=== PATIENT | male | born 1930 | race Caucasian/White ===

== ENCOUNTER 2017-08-04 03:24 | Inpatient (IN) | payer OTHER ==
[~2017-08-04] VITALS: Ht 177.8 cm; Wt 93.7 kg
[2017-08-04] VITALS (8 sets, daily range): BP systolic 113–150; BP diastolic 52–86
--- NOTE | ~2017-08-04 | PR ---
[place], [place] PROGRESS NOTE NAME: TOBIAS KING [facility] #: [id number] UNIT #: [id number] ROOM: 523 DOCTOR: GLORIA SUAZO MD BIRTHDATE: [birth year] DOS: SUBJECTIVE: The patient states that he is quite tired. He also is slightly more short of breath on exertion. His appetite is poor. He did not participate in physical therapy this morning yet. PHYSICAL EXAMINATION: VITAL SIGNS: Blood pressure is 150/69, pulse of 81, respirations 20, temperature 98.4. LUNGS: Clear. HEART: Regular. ABDOMEN: Obese, soft, nontender. EXTREMITIES: Without any edema. LABORATORY DATA: White cell count is normal at 4.9, hemoglobin 10.3, hematocrit 32.3, platelets 219. BMP: Glucose 100, BUN 23, creatinine 1.54, sodium 135, potassium 4.2, chloride 101, bicarbonate 26. Ultrasound of the carotids was negative. Urinalysis showed 1+ blood, no other abnormality was seen. CT of the head was negative except for small vessel disease. ASSESSMENT AND PLAN: 1. The patient with a fall at home with rhabdomyolysis. The patient is getting IV fluids, repeat myoglobin will be ordered for tomorrow. 2. Acute kidney injury. The patient apparently was taking Bactrim 3 times a day as an outpatient for the last several days as per the family members because of the wound on his left thumb, which may have caused acute kidney injury. The patient is ordered again IV fluids. We will also do a renal ultrasound today to rule out underlying hydronephrosis or obstructive uropathy. 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 A CT of the chest and an echocardiogram have been ordered. 4. Adult failure to thrive. I suggested he go to a rehab, but he has refused. We will see how he does with therapy this morning. GLORIA SUAZO MD CM:PNTRANS 0824 GLORIA SUAZO MD 08/05/17 0859 interface
--- NOTE | ~2017-08-04 | PR ---
[place], [place] PROGRESS NOTE NAME: TOBIAS KING [facility] #: [id number] UNIT #: [id number] ROOM: 523 DOCTOR: GLORIA SUAZO MD BIRTHDATE: [birth year] DOS: 08/06/2017 SUBJECTIVE: The patient is doing fine without any complaints. His appetite is improving. He is eating his breakfast. He did not go out for therapy yesterday because he was too weak. OBJECTIVE: VITAL SIGNS: Graphic trend shows blood pressure of 111/62, pulse of 68, respirations 20, temperature 98.0. LUNGS: Clear. HEART: Regular. ABDOMEN: Obese, soft, nontender. EXTREMITIES: Without any edema. LABORATORY DATA: CT of the chest did not show any acute pathology. Ultrasound of the kidneys showed no hydronephrosis, bladder is not distended, kidneys were within normal limits. WBC count is 4.5, hemoglobin 9.9, hematocrit 30.6. BMP: Glucose 120, BUN 22, creatinine 1.23, sodium 134, potassium 4.1, myoglobin was 442. ASSESSMENT AND PLAN: 1. Acute rhabdomyolysis. The patient is on IV fluids. Myoglobin did go up from when he was admitted. I am hoping it will trend down soon, repeat myoglobin is ordered for tomorrow. 2. Adult failure to thrive with a fall at home. The patient still has not participated in PT yet because he was too tired. He does not want to go to a penitentiary home. He wants to go home because his has early dementia and he does not want to leave her alone at home. 3. Benign hypertension, controlled. 4. Type 2 diabetes mellitus. His last few blood sugars are normal so his metformin has been discontinued. We will consider adding another antidiabetic depending on the sugars before he goes home. GLORIA SUAZO MD CM:PNTRANS 0929 GLORIA SUAZO MD 08/24/17 0934 interface
--- NOTE | ~2017-08-04 | O ---
[place], [place] OPERATIVE NOTE NAME: TOBIAS KING UNIT #: [id number] ROOM: 523 DOCTOR: RAUDEL ESCAMILLA MD BIRTHDATE: [birth year] DOS: 08/07/2017 INDICATIONS: The patient presented with anemia, iron deficiency, undergone investigation. The patient has been on aspirin. PROCEDURE: Today's procedure part of investigation is panendoscopy and colonoscopy. PREMEDICATION: Versed and Diprivan. SCOPE: Olympus folding colonoscope 10L video. REPORT: After putting the patient has lateral position, application of lubricant to the scope, the scope was introduced. Thereafter, under direct visualization, advanced through the length of esophagus without difficulty. Gastric pouch was entered. Presence of degraded blood in droplets in the gastric pouch was noticed photographed. Duodenum was entered. Multiple small duodenal ulcers were identified, photographed. Biopsy from margin of 1 was obtained, the patient was gradually extubated and tolerated the procedure well. IMPRESSION: Duodenal ulcers and gastritis as a cause of guaiac positivity. Please contribution from upper GI tract. We are going to proceed with colonoscopy today. COLONOSCOPY INDICATIONS: The patient presented with chief complaint of GI bleed, anemia, iron deficiency, undergone investigation. PROCEDURE: Today's procedure part of investigation is colonoscopy. PREMEDICATION: Versed and Diprivan. SCOPE: Olympus folding colonoscope 10L video. REPORT: After putting the patient in left lateral position and application of lubricant to the scope, the scope was introduced, under direct visualization, advanced through the length of colon without difficulty. Severe diverticulosis was identified. Retained stool in the right colon noticed. Scope was gradually withdrawn after encountering solid stool in the right colon. Scope was gradually withdrawn. Hemorrhoids externally was noticed, which are agitated. The patient extubated, tolerated procedure well. IMPRESSION: Diverticulosis, retained stool, hemorrhoids, external. PLAN AND DISCUSSION: Withholding the aspirin for a few days, Protonix 40 mg daily and source of the anemia is blood loss, upper GI secondary to aspirin product, and presence of ulcerations in the duodenum. [place], [place] OPERATIVE NOTE NAME: TOBIAS KING UNIT #: [id number] ROOM: 523 DOCTOR: RAUDEL ESCAMILLA MD BIRTHDATE: [birth year] RAUDEL ESCAMILLA MD CM:KENNYORD:OPERATIVE NOTE 15 29 RAUDEL ESCAMILLA MD 08/07/17 1731 interface
--- NOTE | ~2017-08-04 | PR ---
[place], [place] PROGRESS NOTE NAME: TOBIAS KING UNIT #: [id number] ROOM: 523 DOCTOR: GLORIA SUAZO MD BIRTHDATE: [birth year] DOS: SUBJECTIVE: The patient is feeling better and he is anxious to go home. OBJECTIVE: VITAL SIGNS: Graphic trend shows blood pressure of 138/64, pulse of 65, respirations 18, temperature 97.4. LUNGS: Diminished breath sounds, clear. HEART: Regular. ABDOMEN: Soft. EXTREMITIES: Without any edema. LABORATORY DATA: ESR is 53. CRP is 13.70. Iron is 15. B12 is 897. Folic acid 20.84. Echocardiogram showed normal LV function with mild concentric LVH. Urine culture, no bacterial growth. Myoglobin 148. ASSESSMENT AND PLAN: 1. A patient who presents with rhabdomyolysis. Myoglobin after the initial spike has come down. 2. Iron deficiency anemia with elevated ESR and CRP, most likely we will need to do a GI workup to rule out source of blood loss. Iron supplements will be started, one dose of iron IV will be given this morning. 3. Adult failure to thrive, to go home after the colonoscopy with PT, OT. GLORIA SUAZO MD CM:PNTRANS 0942 GLORIA SUAZO MD 08/07/17 1006 interface
--- NOTE | ~2017-08-04 | CON ---
[place], [place] REPORT OF CONSULTATION [id number] UNIT #: [id number] ROOM: 523 DOCTOR: RAUDEL ESCAMILLA MD BIRTHDATE: [birth year] DOS: HISTORY OF PRESENT ILLNESS: An 86-year-old patient who has presented with multiple medical problems, among which has been borderline anemia and Dr. Zuñiga and I have discussed and she would like us to do a colonoscopy and panendoscopy on the patient. BUN and creatinine at the time of admission was 38 and 2.7, and GFR [address] scan of the head has been no acute intracranial finding. His carotid Doppler studies has 50% atherosclerotic plaque. His H and H further dropped to 10 and 32. C-reactive protein is 13 elevated. Iron is 15, so iron-deficient anemia. The patient is on aspirin 81 mg daily. Urine culture has been nonremarkable. Renal ultrasound was done, no hydronephrosis bilaterally. Chest x-ray, CT, no acute process, no effusion was identified. PAST MEDICAL HISTORY: Diabetes, osteoarthritis, COPD, hypertension. SOCIAL HISTORY: Nonsmoker, nonalcohol consumer. Past heavy smoker FAMILY HISTORY: Noncontributory. MEDICATION: List has been reviewed including aspirin. PAST SURGICAL HISTORY: Bilateral knee prosthesis. REVIEW OF SYSTEMS: HEENT: Denies double vision, blurred vision. RESPIRATORY: Admits some shortness of breath. CARDIOVASCULAR: Denies chest pain. DIGESTIVE SYSTEM: No hematemesis, no hematochezia; however anemia, iron deficient. PHYSICAL EXAMINATION: VITAL SIGNS: Stable. HEENT: Head normocephalic, nontraumatic. Eyes: Pupils round, reactive. Sclerae nonicteric. Mouth and buccal mucosa benign. NECK: Supple, no thyromegaly, no cervical lymphadenopathy. CHEST: Symmetric anatomy, decreased air entry, COPD. HEART: Normal sinus rhythm, no gallop, no murmur. ABDOMEN: Soft. No hepato-organomegaly. Bowel sounds present. EXTREMITIES: No cyanosis, no pedal edema. NEUROLOGIC: Alert, oriented to time, place, person. IMPRESSION: Iron deficient anemia. PLAN AND DISCUSSION AND OTHER ADJUNCTIVE DIAGNOSES: Peripheral neuropathy, chronic obstructive pulmonary disease, vascular insufficiency, diabetes, hypertension. PLAN AND DISCUSSION: We are going to perform EGD and colonoscopy if possible for his borderline anemia and iron deficiency. [place], [place] REPORT OF CONSULTATION NAME: TOBIAS KING UNIT #: [id number] ROOM: 523 DOCTOR: FRANCINE BOTELLO,RAUDEL BIRTHDATE: [birth year] RAUDEL ESCAMILLA MD CM:CONSTR:REPORT OF CONSULTATION 1657 08/08/17 1321 interface
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
[~2017-08-04 03:24] MED LIST: AUGMENTIN 875-875 MG PO; Accuneb 0.1.25 MG/3 INH; BAYER ASPIRIN C81 MG PO; GABAPENTIN300 MG PO; LASIX40 MG PO; LOPRESSOR50 M1 PO; MULTI VITAMINS1 TAB PO; Metformin Hydr500 MG PO; SILVADENE,SSD C50 GM PO
[2017-08-04 03:53] LABS: BASO # 0.1 10*3/uL (0.0-0.1); BASO % 0.8 % (0.0-1.0); EOS # 0.1 10*3/uL (0.0-0.4); EOS % 0.7 % (1.0-4.0); HEMATOCRIT 34.5 % (42.0-52.0); HEMOGLOBIN 11.2 g/dl (14.0-18.0); LYMPH # 0.4 10*3/uL (1.3-4.4); LYMPH % 5.7 % (27.0-41.0); MEAN CELL VOLUME 87.8 fl (80.0-94.0); MEAN CORPUSCULAR HGB 28.5 pg (27.0-31.0); MEAN CORPUSCULAR HGB CONC 32.5 g/dl (33.0-37.0); MEAN PLATELET VOLUME 9.1 fl (9.6-12.3); MONO # 0.7 10*3/uL (0.1-1.0); MONO % 9.6 % (3.0-9.0); NEUT # 6.2 10*3/uL (2.3-7.9); NEUT % 82.9 % (47.0-73.0); PLATELET COUNT AUTOMATED 257 10*3/uL (130-400); RED BLOOD COUNT 3.93 10*6/uL (4.50-5.90); RED CELL DISTRI WIDTH 14.4 % (0-14.5); WHITE BLOOD COUNT 7.5 10*3/uL (4.8-10.8)
[2017-08-04 04:09] LABS: ALBUMIN 3.1 gm/dl (3.1-4.5); ALKALINE PHOSPHATASE 91 U/L (45-117); BUN 38 mg/dl (7-24); CHLORIDE 99 mmol/L (98-107); CREATININE 2.27 mg/dL (0.70-1.30); LIPASE 110 U/L (73-393); SGOT/AST 18 IU/L (3-35); SGPT/ALT 18 U/L (12-78); SODIUM 134 mmol/L (136-145); TOTAL PROTEIN 7.3 gm/dL (6.4-8.2)
[2017-08-04 04:11] LABS: TROPONIN I < 0.015 ng/ml (<0.045)
--- NOTE | 2017-08-04 06:15 | NUR ---
A 86YR OLD MALE, admitted to 5E, under the services of GLORIA Rosario MD with a diagnosis of ACUTE RENAL INJURY. Chief complaint is FEELING WEAK. Patient arrived via stretcher from ER. Monitor applied. Initial assessment completed. Vital signs taken and recorded. GLORIA ROSARIO MD notified of admission to the unit. Orders received. See assessment for past medical history, medications and allergies. Patient and/or family oriented to unit 5E. visitation policy reviewed. Clothing/patient valuable form completed. EAN MENEZES
--- NOTE | 2017-08-04 06:20 | NUR ---
Medication reconciliation updated and verified by patient. Patient knew names of medication and dosages.
--- NOTE | 2017-08-04 06:44 | NUR ---
MED REC UP TO DATE PER PATIENT RECALL.
--- NOTE | 2017-08-04 08:00 | NUR ---
Interventional Nurse in to talk to patient. Patient states lives at HOME with HIS . There are 10 steps in the home. Physician: DR SUAZO Pharmacy: [facility] health services: NONE Patient's level of ADLs: MINIMAL ASSIST Patient has working utilities: YES DME: STAIR LEFT Follow-up physician's appointment after d/c: PREFERS TO MAKE HIS OWN APPT Does patient want to access PORTAL?: Discharge plan HOME. [facility] ST[facility] DISCUSSED. REFUSES. WANTS TO GO HOME. DOES NOT WANT [facility].
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
--- NOTE | 2017-08-04 13:14 | NUR ---
PHYSICAL THERAPY Mr Cedillo was seen this PM for his therapy session. Anuj said he was to unsteady this afternoon and would try tomorrow. JUVE WEN MANAGER FLORAL.
--- NOTE | 2017-08-04 20:00 | NUR ---
ASSUMED CARE OF PATIENT. ASSESSMENT COMPLETE. RESTING IN BED. NO VOICED COMPLAINTS. CALL LIGHT IN REACH. WILL CONTINUE TO MONITOR.
--- NOTE | 2017-08-04 23:45 | NUR ---
PT IS SLEEPING COMFORTABLY AFTER RECEIVING AMBIEN PRN.
[2017-08-05] VITALS (7 sets, daily range): BP systolic 118–154; BP diastolic 61–74
[2017-08-05 01:31] LABS: BILIRUBIN NEGATIVE (NEGATIVE); BLOOD 1+ (NEGATIVE); CLARITY CLEAR (CLEAR); COLOR YELLOW (YELLOW); GLUCOSE NEGATIVE (NEGATIVE); KETONE NEGATIVE (NEGATIVE); LEUKO ESTERASE NEGATIVE (NEGATIVE); NITRITE NEGATIVE (NEGATIVE); SPECIFIC GRAVITY 1.015 (1.005-1.030); UROBILINOGEN 0.2 E.U./dl (0.2-1.0)
[2017-08-05 01:41] LABS: EPITHELIAL CELLS 0-5
--- NOTE | 2017-08-05 02:00 | NUR ---
PT CONTINUES TO SLEEP. NO SIGNS OR DISTRESS NOTED. RESP EASY. CALL LIGHT IN REACH. WILL CONTINUE TO MONITOR.
[2017-08-05 06:20] LABS: BASO % 0.8 % (0.0-1.0); EOS % 0.6 % (1.0-4.0); HEMATOCRIT 32.3 % (42.0-52.0); HEMOGLOBIN 10.3 g/dl (14.0-18.0); LYMPH # 0.6 10*3/uL (1.3-4.4); MEAN CELL VOLUME 88.7 fl (80.0-94.0); MEAN CORPUSCULAR HGB 28.3 pg (27.0-31.0); MEAN CORPUSCULAR HGB CONC 31.9 g/dl (33.0-37.0); MEAN PLATELET VOLUME 9.3 fl (9.6-12.3); MONO # 0.5 10*3/uL (0.1-1.0); MONO % 10.3 % (3.0-9.0); NEUT # 3.7 10*3/uL (2.3-7.9); NEUT % 75.5 % (47.0-73.0); PLATELET COUNT AUTOMATED 219 10*3/uL (130-400); RED BLOOD COUNT 3.64 10*6/uL (4.50-5.90); RED CELL DISTRI WIDTH 14.3 % (0-14.5); WHITE BLOOD COUNT 4.9 10*3/uL (4.8-10.8)
[2017-08-05 06:46] LABS: CREATININE 1.54 mg/dL (0.70-1.30); POTASSIUM 4.2 mmol/L (3.5-5.1)
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
--- NOTE | 2017-08-05 09:12 | NUR ---
PATIENT TAKEN OFF THE FLOOR VIA WHEELCHAIR TO RADIOLOGY.
--- NOTE | 2017-08-05 10:42 | NUR ---
PHYSICAL THERAPY Patient was eating breakfast when first approached for am therapy and declined all morning treatment upon 2nd attempt stating he was not feeling well and c/o's cold "shivering". Patient remained in bed covered with several blankets and no services provided this am. Will continue per POC as tolerated. Eliezer Bowen, LIBRARIAN SPECIAL COLLECTIONS
--- NOTE | 2017-08-05 13:37 | NUR ---
SW SPOKE WITH PT AND HE AGREED TO [facility]. PT DOES NOT WANT TO GO TO SNF DUE TO TAKING CARE OF HIS AT HOME.
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
[2017-08-06] VITALS: BP 111/62
--- NOTE | 2017-08-06 01:10 | NUR ---
24 HR chart check completed.
[2017-08-06 07:02] LABS: BASO % 0.7 % (0.0-1.0); EOS # 0.1 10*3/uL (0.0-0.4); EOS % 1.8 % (1.0-4.0); HEMATOCRIT 30.6 % (42.0-52.0); HEMOGLOBIN 9.9 g/dl (14.0-18.0); LYMPH # 0.8 10*3/uL (1.3-4.4); LYMPH % 17.4 % (27.0-41.0); MEAN CELL VOLUME 87.9 fl (80.0-94.0); MEAN CORPUSCULAR HGB 28.4 pg (27.0-31.0); MEAN CORPUSCULAR HGB CONC 32.4 g/dl (33.0-37.0); MEAN PLATELET VOLUME 9.5 fl (9.6-12.3); MONO # 0.5 10*3/uL (0.1-1.0); MONO % 11.9 % (3.0-9.0); NEUT % 67.8 % (47.0-73.0); PLATELET COUNT AUTOMATED 218 10*3/uL (130-400); RED BLOOD COUNT 3.48 10*6/uL (4.50-5.90); RED CELL DISTRI WIDTH 14.5 % (0-14.5); WHITE BLOOD COUNT 4.5 10*3/uL (4.8-10.8)
[2017-08-06 07:33] LABS: BUN 22 mg/dl (7-24); CHLORIDE 101 mmol/L (98-107); CREATININE 1.23 mg/dL (0.70-1.30); POTASSIUM 4.1 mmol/L (3.5-5.1); SODIUM 134 mmol/L (136-145)
[2017-08-06 08:00] VITALS: BP 93/47
[2017-08-06 10:00] VITALS: BP 145/64
--- NOTE | 2017-08-06 11:41 | NUR ---
PHYSICAL THERAPY Patient presented to therapy in supine with report of feeling better than he did yesterday. Patient performed supine to sitting at EOB transfer with SBA. Patient transfered sit to stand with CGA X 1. Patient performed gait CGA X 1 to toilet. Patient transfered to and from toilet with SBA. Patient performed gait around room for 40' x 1 with CGA X 1. Patient performed seated ther ex in bedside chair x 15 reps each in all planes of mvmt. Patient transferred back to bed with CGA X 1. Patient was left in bed supine with bed alarm activated and call light within reach. Patient was 1:1 with this RAILROAD SIGNAL AND SWITCH OPERATOR for 25 minutes total. Cheikh Krishna RAILROAD SIGNAL AND SWITCH OPERATOR
[2017-08-06 12:00] VITALS: BP 108/55
--- NOTE | 2017-08-06 15:15 | NUR ---
PT IN BED, LAYING DOWN. NO COMPLAINTS AT THIS TIME. NO DISTRESS NOTED.
[2017-08-06 16:00] VITALS: BP 118/58
--- NOTE | 2017-08-06 16:08 | NUR ---
WOUND DRESSING ON PTS LEFT THUMB CHANGED. SKIN IS PEELING OFF AROUND THE WOUND. HALF OF FINGERNAIL IS MISSING. SMALL AMOUNT OF YELLOW EXUDATE PRESENT. WOUND IS RED/PINK IN COLOR. PT TOLERATED DRESSING CHANGE WELL. DENIES ANY PAIN DURING CHANGE.
[2017-08-06 20:00] VITALS: BP 128/60
--- NOTE | 2017-08-06 21:05 | NUR ---
PATIENT RESTING QUIETLY IN BED. HE HAS NO VOICED COMPLAINTS AT THIS TIME. RESPIRATIONS EASY/REG. NO SXS OF DISTRESS. FLUIDS MAINTAINED PER ORDER. CALL LIGHT IN REACH.
--- NOTE | 2017-08-06 21:10 | NUR ---
MEDICATED WITH PRN AMBIEN ORDERED FOR C/O INSOMNIA
--- NOTE | 2017-08-06 22:15 | NUR ---
EARLIER AMBIEN APPEARS EFFECTIVE. PATIENT SLEEPING, NO SXS OF DISTRESS. CALL LIGHT IN REACH.
[2017-08-07] VITALS (8 sets, daily range): BP systolic 114–154; BP diastolic 63–98
--- NOTE | 2017-08-07 01:19 | NUR ---
24 HR chart check completed.
--- NOTE | 2017-08-07 09:41 | NUR ---
DR SUAZO SEES PT. SPOKE WITH HIM RE: EGD/COLO PT AGREEABLE. DR SUAZO CALLED DR ESCAMILLA RE: EGD/COLO. THIS NURSE RECIEVED PHONE ORDERS FOR EGD/COLO PREP. DR SUAZO SPOKE WITH DAUGHTER AND INFORMED OF EGD/COLO TODAY.
[2017-08-07] MEDS ORDERED: GLIPIZIDE5 MG PO (09:45)
[2017-08-07] MEDS ORDERED: FE C TABLET1 EACH PO (09:46)
--- NOTE | 2017-08-07 11:10 | NUR ---
PHYSICAL THERAPY Patient was sleeping soundly when first approached this am for therapy visit and requested pm treatment during second attempt later this morning, stating he wanted to rest till lunch. Will continue per POC as tolerated. Eliezer Bowen, TRANSMISSION SPECIALIST
--- NOTE | 2017-08-07 14:55 | NUR ---
TAP WATER ENEMA GIVEN WITH SMALL RESULTS. SURGERY AWARE.
--- NOTE | 2017-08-07 15:17 | NUR ---
PT OFF FLOOR FOR EGD/COLO.
--- NOTE | 2017-08-07 18:10 | NUR ---
pt back from surgery. dr perez called per pt request to go home. orders received to discharge tonsami. HENRY ASA and protonix will be called into [facility].
--- NOTE | 2017-08-07 18:11 | NUR ---
Discharge instructions reviewed with patient/family. Patient receptive and verbalizes understanding. Follow-up care arranged. Written instructions given to patient/family. NEELAM LUJAN
--- NOTE | 2017-08-10 07:51 | NUR ---
PHYSICAL THERAPY CO-SIGN I approve of the Phyical Therapy notes written above. CHERYL GERMAN PT
== END 2017-08-07 19:26 | disposition home or self-care (01) | DRG 557 ==
LOC: ED 03:24 → 5E 05:23 → EDHOLD 05:23 → 5E 05:25
PROVIDERS: Emergency Medicine Emergency Medical Services; ADMIT Internal Medicine
PROC: 3E0234Z Introduction of Serum, Toxoid and Vaccine into Muscle, Percutaneous Approach (ICD-10-PCS; 2017-08-04)
PROC: 0DJD8ZZ Inspection of Lower Intestinal Tract, Via Natural or Artificial Opening Endoscopic (ICD-10-PCS; principal; 2017-08-07)
PROC: 0DB68ZX Excision of Stomach, Via Natural or Artificial Opening Endoscopic, Diagnostic (ICD-10-PCS; principal; 2017-08-07)
DX: M62.82 Rhabdomyolysis (principal); N17.0 Acute kidney failure with tubular necrosis; E11.42 Type 2 diabetes mellitus with diabetic polyneuropathy; K26.9 Duodenal ulcer, unspecified as acute or chronic, without hemorrhage or perforation; J43.1 Panlobular emphysema; K29.70 Gastritis, unspecified, without bleeding; R62.7 Adult failure to thrive; D50.9 Iron deficiency anemia, unspecified; K64.4 Residual hemorrhoidal skin tags; I10 Essential (primary) hypertension; M17.0 Bilateral primary osteoarthritis of knee; K57.30 Diverticulosis of large intestine without perforation or abscess without bleeding; W18.39XA Other fall on same level, initial encounter; I87.2 Venous insufficiency (chronic) (peripheral); Z53.29 Procedure and treatment not carried out because of patient's decision for other reasons; Z87.891 Personal history of nicotine dependence; Z79.84 Long term (current) use of oral hypoglycemic drugs; Z81.8 Family history of other mental and behavioral disorders; Z79.82 Long term (current) use of aspirin; Z23 Encounter for immunization; Y93.89 Activity, other specified; Y92.098 Other place in other non-institutional residence as the place of occurrence of the external cause; Y99.8 Other external cause status

== ENCOUNTER 2017-10-04 16:12 | Inpatient (IN) | payer OTHER ==
[~2017-10-04] VITALS: Ht 177.8 cm; Wt 84.4 kg
--- NOTE | ~2017-10-04 | WRIGHTHP ---
[place], [place] PATIENT HISTORY AND PHYSICAL EXAM [id number] #: [id number] ROOM: 524 DOCTOR: GLORIA SUAZO MD BIRTHDATE: [birth year] DOS: 10/04/2017 HISTORY OF PRESENT ILLNESS: This patient is 87 years old. The patient is very well known to us. The patient comes in with complaint of swelling of the right side of the face, mouth and some swelling of the lip, but no swelling of the tongue. He did not have any trouble breathing. He denies having any chest pains or palpitation. Came into the Emergency Room, and was evaluated, was thought to have angioedema from LISINOPRIL and was admitted. This morning, his swelling is much improved. He does not have any complaints. He feels good. PAST MEDICAL HISTORY: Significant for: 1. Recent hospitalization with rhabdomyolysis. 2. Adult failure to thrive. 3. Type 2 diabetes mellitus, non-insulin dependent. 4. Iron deficiency anemia. 5. Benign hypertension. 6. Peripheral neuropathy. MEDICATIONS: Protonix 40, Lasix 40, gabapentin 300 b.i.d., lisinopril, glipizide 5 daily, metoprolol 50 daily, albuterol inhaler, aspirin 81 daily. SOCIAL HISTORY: Nonsmoker, does not use any alcohol. PHYSICAL EXAMINATION: VITAL SIGNS: Graph trend shows a pressure of 132/67, pulse of 80, respirations 20, temperature 97.5. LUNGS: Clear. HEART: Regular. ABDOMEN: Obese, soft, nontender. EXTREMITIES: Without any edema. Right side of the face looks minimal swelling, but much improved when compared to yesterday. ASSESSMENT AND PLAN: 1. Angioedema from LISINOPRIL, which has been discontinued. IV steroids were given and the swelling has subsided. The patient is stable and can be discharged to home. 2. Benign hypertension, already on metoprolol, which will be continued. 3. Type 2 diabetes mellitus, on glipizide which will be continued as an outpatient. [place], [place] PATIENT HISTORY AND PHYSICAL EXAM [facility]: [id number] #: [id number] ROOM: 524 DOCTOR: GLORIA SUAZO MD BIRTHDATE: [birth year] GLORIA SUAZO MD CM:DENICES:PATIENT HISTORY AND PHYSICAL EXAMINATION 1 1010 GLORIA SUAZO MD 10/05/17 1009 interface
[~2017-10-04 16:12] MED LIST changes: +FE C TABLET1 EACH PO; +GLIPIZIDE5 MG PO
[2017-10-04 16:13] VITALS: BP 165/77
[2017-10-04 16:43] LABS: BASO % 0.5 % (0.0-1.0); EOS # 0.1 10*3/uL (0.0-0.4); EOS % 1.3 % (1.0-4.0); HEMATOCRIT 32.2 % (42.0-52.0); HEMOGLOBIN 10.2 g/dl (14.0-18.0); LYMPH # 2.1 10*3/uL (1.3-4.4); LYMPH % 26.7 % (27.0-41.0); MEAN CELL VOLUME 88.7 fl (80.0-94.0); MEAN CORPUSCULAR HGB 28.1 pg (27.0-31.0); MEAN CORPUSCULAR HGB CONC 31.7 g/dl (33.0-37.0); MEAN PLATELET VOLUME 9.6 fl (9.6-12.3); MONO % 12.6 % (3.0-9.0); NEUT # 4.6 10*3/uL (2.3-7.9); NEUT % 58.5 % (47.0-73.0); PLATELET COUNT AUTOMATED 390 10*3/uL (130-400); RED BLOOD COUNT 3.63 10*6/uL (4.50-5.90); RED CELL DISTRI WIDTH 14.5 % (0-14.5); WHITE BLOOD COUNT 7.8 10*3/uL (4.8-10.8)
[2017-10-04 16:58] LABS: ALBUMIN 2.9 gm/dl (3.1-4.5); ALKALINE PHOSPHATASE 88 U/L (45-117); BUN 25 mg/dl (7-24); CHLORIDE 101 mmol/L (98-107); CREATININE 1.43 mg/dL (0.70-1.30); POTASSIUM 4.4 mmol/L (3.5-5.1); SGOT/AST 16 IU/L (3-35); SGPT/ALT 12 U/L (12-78); SODIUM 139 mmol/L (136-145); TOTAL PROTEIN 7.5 gm/dL (6.4-8.2)
[2017-10-04 16:59] LABS: TROPONIN I < 0.015 ng/ml (<0.045)
[2017-10-04 17:40] VITALS: BP 156/73
[2017-10-04] MEDS ORDERED: MILLIPRED5 MG PO (18:00)
[2017-10-04] MEDS ORDERED: LISINOPRIL5 MG PO (18:01)
[2017-10-04 20:00] VITALS: BP 141/62
[2017-10-05] VITALS: BP 132/67
[2017-10-05 08:00] VITALS: BP 154/74
== END 2017-10-05 10:08 | disposition home or self-care (01) | DRG 916 ==
LOC: ED 16:12 → EDHOLD 16:45 → 5E 16:45
PROVIDERS: Student in an Organized Health Care Education/Training Program
DX: T78.3XXA Angioneurotic edema, initial encounter (principal); E11.42 Type 2 diabetes mellitus with diabetic polyneuropathy; D50.9 Iron deficiency anemia, unspecified; T46.4X5A Adverse effect of angiotensin-converting-enzyme inhibitors, initial encounter; R62.7 Adult failure to thrive; I10 Essential (primary) hypertension; Z79.84 Long term (current) use of oral hypoglycemic drugs; Z79.899 Other long term (current) drug therapy; Y92.89 Other specified places as the place of occurrence of the external cause

== ENCOUNTER 2017-10-12 10:48 | Emergency (ER) | payer OTHER ==
[~2017-10-12] VITALS: Ht 180.3 cm; Wt 88.5 kg
[~2017-10-12 10:48] MED LIST changes: +LISINOPRIL5 MG PO; +MILLIPRED5 MG PO
[2017-10-12 11:06] VITALS: BP 98/65
[2017-10-12 12:22] LABS: BASO % 0.4 % (0.0-1.0); EOS # 0.1 10*3/uL (0.0-0.4); HEMATOCRIT 33.9 % (42.0-52.0); HEMOGLOBIN 10.6 g/dl (14.0-18.0); LYMPH # 1.2 10*3/uL (1.3-4.4); LYMPH % 13.7 % (27.0-41.0); MEAN CELL VOLUME 89.2 fl (80.0-94.0); MEAN CORPUSCULAR HGB 27.9 pg (27.0-31.0); MEAN CORPUSCULAR HGB CONC 31.3 g/dl (33.0-37.0); MEAN PLATELET VOLUME 9.3 fl (9.6-12.3); MONO # 0.8 10*3/uL (0.1-1.0); MONO % 8.8 % (3.0-9.0); NEUT # 6.8 10*3/uL (2.3-7.9); NEUT % 75.5 % (47.0-73.0); PLATELET COUNT AUTOMATED 357 10*3/uL (130-400); RED CELL DISTRI WIDTH 14.7 % (0-14.5); WHITE BLOOD COUNT 9.1 10*3/uL (4.8-10.8)
[2017-10-12 12:31] LABS: ACT PARTIAL THROMBO TIME 23.2 SECONDS (20.8-31.5)
[2017-10-12 12:40] LABS: ALBUMIN 3.1 gm/dl (3.1-4.5); ALKALINE PHOSPHATASE 91 U/L (45-117); BUN 18 mg/dl (7-24); CHLORIDE 99 mmol/L (98-107); CREATININE 1.13 mg/dL (0.70-1.30); POTASSIUM 4.9 mmol/L (3.5-5.1); SGOT/AST 13 IU/L (3-35); SGPT/ALT 15 U/L (12-78); SODIUM 138 mmol/L (136-145); TOTAL PROTEIN 7.3 gm/dL (6.4-8.2)
[2017-10-12 12:41] LABS: TROPONIN I < 0.015 ng/ml (<0.045)
[2017-10-12] MEDS ORDERED: ZOFRAN ODT4 MG SL (13:51)
== END 2017-10-12 13:16 | disposition home or self-care (01) ==
LOC: ED 10:48
PROVIDERS: Emergency Medicine
DX: M47.816 Spondylosis without myelopathy or radiculopathy, lumbar region (principal); M25.551 Pain in right hip; R11.0 Nausea; I10 Essential (primary) hypertension; Z79.899 Other long term (current) drug therapy

== ENCOUNTER → 2018-03-11 | Outpatient (CLI) | payer OTHER ==
[~2018-03-11] MED LIST changes: +AMLODIPINE BESYL5 MG PO; +ZOFRAN ODT4 MG SL
== END | disposition home or self-care (01) ==
LOC: RAD 10:15
DX: M51.36 Other intervertebral disc degeneration, lumbar region (principal); M51.37 Other intervertebral disc degeneration, lumbosacral region; M47.896 Other spondylosis, lumbar region; M47.897 Other spondylosis, lumbosacral region

== ENCOUNTER 2018-03-16 08:35 | Emergency (ER) | payer OTHER ==
[~2018-03-16] VITALS: Ht 177.8 cm; Wt 88.9 kg
[~2018-03-16 08:35] MED LIST changes: -AMLODIPINE BESYL5 MG PO
[2018-03-16 09:30] LABS: BASO % 0.4 % (0.0-1.0); EOS # 0.2 10*3/uL (0.0-0.4); EOS % 1.8 % (1.0-4.0); HEMATOCRIT 35.5 % (42.0-52.0); HEMOGLOBIN 11.8 g/dl (14.0-18.0); LYMPH # 1.1 10*3/uL (1.3-4.4); LYMPH % 11.9 % (27.0-41.0); MEAN CELL VOLUME 88.1 fl (80.0-94.0); MEAN CORPUSCULAR HGB 29.3 pg (27.0-31.0); MEAN CORPUSCULAR HGB CONC 33.2 g/dl (33.0-37.0); MEAN PLATELET VOLUME 10.7 fl (9.6-12.3); MONO # 1.2 10*3/uL (0.1-1.0); MONO % 12.1 % (3.0-9.0); NEUT % 73.3 % (47.0-73.0); PLATELET COUNT AUTOMATED 377 10*3/uL (130-400); RED BLOOD COUNT 4.03 10*6/uL (4.50-5.90); RED CELL DISTRI WIDTH 15.1 % (0-14.5); WHITE BLOOD COUNT 9.6 10*3/uL (4.8-10.8)
[2018-03-16 09:52] LABS: BILIRUBIN NEGATIVE (NEGATIVE); BLOOD NEGATIVE (NEGATIVE); CLARITY CLEAR (CLEAR); COLOR YELLOW (YELLOW); GLUCOSE NEGATIVE (NEGATIVE); KETONE NEGATIVE (NEGATIVE); LEUKO ESTERASE NEGATIVE (NEGATIVE); NITRITE NEGATIVE (NEGATIVE); PH 5.5 (5.0-9.0); SPECIFIC GRAVITY 1.015 (1.005-1.030); UROBILINOGEN 0.2 E.U./dl (0.2-1.0)
[2018-03-16 10:02] LABS: EPITHELIAL CELLS 0-2; RBC 0-2 rbc/hpf (0-2); WBC 0-2 wbc/hpf (0-5)
[2018-03-16 10:07] VITALS: BP 120/69
[2018-03-16 10:14] LABS: ALBUMIN 3.6 gm/dl (3.1-4.5); ALKALINE PHOSPHATASE 83 U/L (45-117); BUN 28 mg/dl (7-24); CHLORIDE 100 mmol/L (98-107); CREATININE 1.42 mg/dL (0.70-1.30); POTASSIUM 4.5 mmol/L (3.5-5.1); SGOT/AST 17 IU/L (3-35); SGPT/ALT 26 U/L (12-78); SODIUM 135 mmol/L (136-145); TOTAL PROTEIN 7.3 gm/dL (6.4-8.2)
[2018-03-16 10:20] LABS: TROPONIN I < 0.015 ng/ml (<0.045)
== END 2018-03-16 11:18 | disposition home or self-care (01) ==
LOC: ED 08:35
PROVIDERS: Emergency Medicine
DX: R42 Dizziness and giddiness (principal); I10 Essential (primary) hypertension; Z98.890 Other specified postprocedural states; Z79.899 Other long term (current) drug therapy

== ENCOUNTER 2018-03-20 19:28 | Inpatient (IN) | payer OTHER ==
[~2018-03-20] VITALS: Ht 177.8 cm; Wt 92.5 kg
--- NOTE | ~2018-03-20 | WRIGHTHP ---
[place], [place] PATIENT HISTORY AND PHYSICAL EXAM NAME: TOBIAS KING [facility] #: [id number] UNIT #: [id number] ROOM: 410 DOCTOR: GREGG DEAN MD BIRTHDATE: [birth year] DOS: 03/20/2018 HISTORY OF PRESENT ILLNESS: The patient is an 87-year-old gentleman with a past medical history of: 1. Degenerative joint disease of the lumbar spine. 2. History of benign essential hypertension. 3. Adult failure to thrive. 4. Type 2 diabetes mellitus. 5. Iron deficiency anemia. 6. Peripheral diabetic polyneuropathy. The patient presented to the Emergency Department with generalized weakness, dizziness and inability to ambulate. The patient lives with his who also is not in good health. He had some complaints of nausea and not being able to eat and sleeping more than usual. The patient was seen in the Emergency Department a few days earlier for these same symptoms and sent home, but he has been getting worse for about 2 weeks. The patient was having difficulty even getting to the bathroom while he was using a walker at home. The patient was evaluated in the Emergency Department and recommended for admission for orthostatic hypotension, ambulatory dysfunction, dehydration and dizziness. After admission, the patient is still complaining of having difficulty with walking. REVIEW OF SYSTEMS: LUNGS: No increasing shortness of breath. GASTROINTESTINAL: The patient has some nausea. CARDIOVASCULAR: No chest pains or palpitations. FAMILY HISTORY: Noncontributory. SOCIAL HISTORY: Denies smoking cigarettes, alcohol and drug abuse. HOME MEDICATIONS: Meclizine, metoprolol, prednisone. ALLERGIES: No known drug allergies. PHYSICAL EXAMINATION: GENERAL: Alert, oriented x 3 with generalized weakness and obesity. VITAL SIGNS: Blood pressure was 102/62, heart rate of 61 beats per minute, breathing 18 times per minute, temperature 98 degrees Fahrenheit. HEENT AND NECK: Extraocular movements are intact. Sclerae are anicteric. Oral mucosa is moist and clean. No obvious facial weakness. Neck is supple without any lymphadenopathy. No thyromegaly. No JVD. No carotid arterial bruits. LUNGS: Clear to auscultation. No wheezing. No rhonchi. CARDIOVASCULAR SYSTEM: Heart rate is regular in rate and rhythm. S1 and S2 normally audible. No significant murmur or any other abnormal cardiac sounds. ABDOMEN: Soft, nontender. No obvious organomegaly. Bowel sounds are present. No obvious herniation. EXTREMITIES: Without significant cyanosis or edema. Warm to touch. CENTRAL NERVOUS SYSTEM: Alert and oriented x 3. Cranial nerves II-XII are [place], [place] PATIENT HISTORY AND PHYSICAL EXAM NAME: TOBIAS KING UNIT #: [id number] ROOM: 410 DOCTOR: GREGG DEAN MD BIRTHDATE: [birth year] intact. Speech is normal. The patient is able to move all extremities. Normal muscle strength. Deep tendon reflexes are equal on both sides. Plantars were downgoing. LABORATORY DATA: BUN and creatinine elevated to 33 and 2.13. PT, PTT were baseline. Hemoglobin 11.8. Urine shows signs of infection. IMPRESSION AND PLAN: 1. The patient with acute kidney disease from dehydration and hypovolemia with elevation of BUN and creatinine, to be treated with hydration with normal saline. 2. Orthostatic hypotension, partly from dehydration and hypovolemia, being treated with hydration with IV fluids. 3. Significant vertigo, imbalance and the patient unable to ambulate, being started on physical therapy and Antivert. CT of his head showed no acute abnormality, but it did show diffuse cerebral atrophy. 4. Benign essential hypertension. Blood pressure is to be monitored and treated as necessary. 5. Type 2 diabetes mellitus. Blood sugar is to be monitored and treated. 6. Centrilobular emphysema, to be treated with bronchodilators as needed. GREGG DEAN MD CM:HISPHYS:PATIENT HISTORY AND PHYSICAL EXAMINATION 06 12 GREGG DEAN MD 03/21/181911 interface
--- NOTE | ~2018-03-20 | PR ---
[place], [place] PROGRESS NOTE [id number] UNIT #: [id number] ROOM: 410 DOCTOR: GREGG DEAN MD BIRTHDATE: [birth year] DOS: 03/23/2018 SUBJECTIVE: The patient is feeling much better. His dizziness has significantly improved. OBJECTIVE: VITAL SIGNS: Blood pressure 140/58, heart rate 80 beats per minute, breathing 18 times per minute, afebrile. GENERAL APPEARANCE: The patient is alert and oriented x 3, in no visible distress. Generalized weakness. HEENT AND NECK: Exam within normal limits. CARDIOVASCULAR SYSTEM: Heart rate is regular in rate and rhythm. S1 and S2 normally audible. LUNGS: Clear to auscultation. ABDOMEN: Soft, nontender. No obvious organomegaly. Bowel sounds are present. EXTREMITIES: Without significant cyanosis or edema. IMPRESSION: 1. The patient's generalized weakness, vertigo, ataxia and ambulatory dysfunction is all improving. The patient is working with physical therapy and waiting for transfer to shelter for rehab. 2. Carotid arterial Dopplers are pending for tomorrow. 3. Orthostatic hypotension, treated with hydration. Now, the patient is with IV hydration. Now, the patient is eating well, so IV fluids are being discontinued. 4. Benign essential hypertension with controlled blood pressures. Because of his dizziness and postural hypotension, I will avoid lowering his blood pressures further and I will leave them at high normal level or slightly higher than normal level. 5. Type 2 diabetes mellitus. Blood sugars are well controlled. 6. Centrilobular emphysema, treated with bronchodilators. He is asymptomatic. 7. Acute kidney failure, resolved with hydration with normal saline. GREGG DEAN MD CM:PNTRANS [id number] GREGG DEAN MD 03/25/18 0247 interface
--- NOTE | ~2018-03-20 | PR ---
[place], [place] PROGRESS NOTE [id number] UNIT #: [id number] ROOM: 410 DOCTOR: GREGG DEAN MD BIRTHDATE: [birth year] DOS: 03/23/2018 SUBJECTIVE: The patient says his dizziness and vertigo are improving and he is starting to walk a little better. OBJECTIVE: GENERAL APPEARANCE: The patient is alert and oriented x 3, in no visible distress. VITAL SIGNS: Blood pressure 136/63, heart rate of 58 beats per minute, breathing 20 times per minute, temperature 98 degrees Fahrenheit. HEENT AND NECK: Exam within normal limits. CARDIOVASCULAR SYSTEM: Heart rate is regular in rate and rhythm. S1 and S2 normally audible. LUNGS: Clear to auscultation. ABDOMEN: Soft, nontender. No obvious organomegaly. Bowel sounds are present. EXTREMITIES: Generalized weakness and gait disturbance. IMPRESSION: 1. The patient with vertigo, ataxia, and ambulatory dysfunction is improving with treatment with Antivert and physical therapy. The patient waiting to be transferred to long term facility for further care. MRI of the brain did not show any acute abnormality. I will check his carotid arterial Dopplers. 2. Orthostatic hypotension, treated with hydration with normal saline. 3. Acute over chronic kidney disease with kidney function has returned to baseline and normal after hydration with normal saline. 4. Benign essential hypertension, treated and controlled. 5. Type 2 diabetes mellitus. Blood sugars are being monitored and treated. 6. Centrilobular emphysema, treated with bronchodilators, asymptomatic. GREGG DEAN MD CM:PNTRANS [phone] GREGG DEAN MD 03/24/18 0504 interface
--- NOTE | ~2018-03-20 | PR ---
[place], [place] PROGRESS NOTE NAME: TOBIAS KING UNIT #: [id number] ROOM: 410 DOCTOR: GREGG DEAN MD BIRTHDATE: [birth year] DOS: 03/22/2018 SUBJECTIVE: The patient says he is sleepier with Antivert, but he is still having difficulty with walking and he is working with physical therapy. OBJECTIVE: VITAL SIGNS: Blood pressure 122/55, heart rate 60 beats per minute, breathing 18 times per minute, temperature 97.5 degrees Fahrenheit. GENERAL APPEARANCE: The patient is alert and oriented x 3, in no visible distress. Difficulty with gait and generalized weakness. HEENT AND NECK: Exam within normal limits. CARDIOVASCULAR SYSTEM: Heart rate is regular in rate and rhythm. S1 and S2 normally audible. LUNGS: Clear to auscultation. ABDOMEN: Soft, nontender. No obvious organomegaly. Bowel sounds are present. EXTREMITIES: Without significant cyanosis or edema. IMPRESSION: 1. The patient with significant vertigo and difficulty with balancing and gait issues. The patient's MRI of the brain shows significant abnormality, but no acute issues except for the patient showing small vessel disease and loss of guaman matter. All other changes are same as before. Plan is to continue physical therapy and Antivert and also [facility] and from [facility] there, he will be sent over for ENT consult, which is not available at our hospital at this time. 2. Orthostatic hypotension, treated with hydration with normal saline intravenously. 3. Acute over chronic kidney disease. BUN and creatinine improved with hydration with IV fluids. I will repeat serum electrolytes, BUN and creatinine tomorrow. 4. Benign essential hypertension, treated and controlled. 5. Type 2 diabetes mellitus. Blood sugars being monitored and treated. 6. Centrilobular emphysema, treated with bronchodilators. [place], [place] PROGRESS NOTE NAME: TOBIAS KING UNIT #: [id number] ROOM: 410 DOCTOR: GREGG DEAN MD BIRTHDATE: [birth year] GREGG DEAN MD CM:PNTRANS [id number] GREGG DEAN MD 03/23/18 0111 interface
--- NOTE | ~2018-03-20 | DS ---
[place], [place] DISCHARGE SUMMARY NAME: TOBIAS KING UNIT #: [id number] ROOM: 410 DOCTOR: GREGG DEAN MD BIRTHDATE: [birth year] DOS: 03/25/2018 DISCHARGE DIAGNOSES: The patient with severe vertigo and gait disturbance, unable to walk by himself. HOSPITAL COURSE: The patient was admitted and started on physical therapy as well as Antivert. Carotid arterial Dopplers and CAT scan and later on MRI of the head did not show any acute abnormality. The patient's balance has continued to improve and he is now going to [facility] for continued rehabilitation and expects to be discharged home from the detention after completing his physical therapy. 1. Orthostatic hypotension and hypovolemia. The patient is already on antihypertensives. He was treated with hydration with normal saline and now he is eating well. I am allowing his blood pressures to sit a little on the lower side to avoid worsening of the orthostatic hypotension. 2. Benign essential hypertension, treated and controlled. 3. Type 2 diabetes mellitus. Blood sugars were monitored and treated and are reasonably controlled. 4. Centrilobular emphysema. The patient treated with bronchodilators, asymptomatic. 5. Acute kidney failure, resolved with hydration with normal saline. BUN and creatinine are at baseline now. It was apparently related to poor appetite and patient not eating well at home and being sick. LABORATORY DATA: Urine cultures were negative. MRI and CT scan results as mentioned above. BUN and creatinine were elevated to 33 and 2.1 at admission and they are normal now. DISCHARGE MANAGEMENT: The patient to take amlodipine 5 mg a day, prednisone 5 mg a day, Meclizine 50 mg 3 times a day for a week and then to be stopped, metoprolol 50 mg daily. Consult physical therapy and occupational therapy. [place], [place] DISCHARGE SUMMARY NAME: TOBIAS KING UNIT #: [id number] ROOM: 410 DOCTOR: GREGG DEAN MD BIRTHDATE: [birth year] GREGG DEAN MD CM:DISCHARG [id number] GREGG DEAN MD 03/25/18 1729 interface
[2018-03-20 19:32] VITALS: BP 110/74
[2018-03-20 20:07] VITALS: BP 108/56; BP 143/86
[2018-03-20 20:09] LABS: BASO # 0.1 10*3/uL (0.0-0.1); BASO % 0.5 % (0.0-1.0); EOS # 0.1 10*3/uL (0.0-0.4); EOS % 0.8 % (1.0-4.0); HEMOGLOBIN 11.8 g/dl (14.0-18.0); LYMPH # 1.3 10*3/uL (1.3-4.4); LYMPH % 12.4 % (27.0-41.0); MEAN CELL VOLUME 87.2 fl (80.0-94.0); MEAN CORPUSCULAR HGB 28.6 pg (27.0-31.0); MEAN CORPUSCULAR HGB CONC 32.8 g/dl (33.0-37.0); MEAN PLATELET VOLUME 9.2 fl (9.6-12.3); MONO # 1.3 10*3/uL (0.1-1.0); MONO % 12.6 % (3.0-9.0); NEUT # 7.7 10*3/uL (2.3-7.9); NEUT % 72.9 % (47.0-73.0); PLATELET COUNT AUTOMATED 399 10*3/uL (130-400); RED BLOOD COUNT 4.13 10*6/uL (4.50-5.90); RED CELL DISTRI WIDTH 14.6 % (0-14.5); WHITE BLOOD COUNT 10.6 10*3/uL (4.8-10.8)
[2018-03-20 20:19] LABS: ACT PARTIAL THROMBO TIME 21.3 SECONDS (20.8-31.5)
[2018-03-20 20:26] LABS: ALBUMIN 3.5 gm/dl (3.1-4.5); ALKALINE PHOSPHATASE 105 U/L (45-117); BUN 33 mg/dl (7-24); CHLORIDE 96 mmol/L (98-107); CREATININE 2.13 mg/dL (0.70-1.30); POTASSIUM 4.3 mmol/L (3.5-5.1); SGOT/AST 24 IU/L (3-35); SGPT/ALT 35 U/L (12-78); SODIUM 132 mmol/L (136-145); TOTAL PROTEIN 7.4 gm/dL (6.4-8.2)
[2018-03-20 20:32] LABS: TROPONIN I < 0.015 ng/ml (<0.045)
[2018-03-20 20:39] VITALS: BP 118/58
[2018-03-20 21:05] LABS: BILIRUBIN NEGATIVE (NEGATIVE); BLOOD NEGATIVE (NEGATIVE); CLARITY SL CLOUDY (CLEAR); COLOR YELLOW (YELLOW); GLUCOSE NEGATIVE (NEGATIVE); KETONE NEGATIVE (NEGATIVE); LEUKO ESTERASE 1+ (NEGATIVE); NITRITE NEGATIVE (NEGATIVE); PH 5.5 (5.0-9.0); SPECIFIC GRAVITY 1.015 (1.005-1.030); UROBILINOGEN 0.2 E.U./dl (0.2-1.0)
[2018-03-20 21:15] LABS: BACTERIA 1+; EPITHELIAL CELLS 0-2
[2018-03-20 21:16] LABS: HYALINE CAST 0-2
[2018-03-20 21:40] VITALS: BP 143/78
[2018-03-20 22:15] VITALS: BP 122/54
[2018-03-21] VITALS: BP 121/64
[2018-03-21 07:29] LABS: CREATININE 1.61 mg/dL (0.70-1.30); POTASSIUM 4.3 mmol/L (3.5-5.1)
[2018-03-21 08:00] VITALS: BP 139/63
[2018-03-21 12:00] VITALS: BP 144/40
[2018-03-21 16:00] VITALS: BP 102/62
[2018-03-21 20:00] VITALS: BP 109/49
[2018-03-22] VITALS: BP 132/70; BP 150/131
[2018-03-22 08:00] VITALS: BP 150/60
[2018-03-22 12:00] VITALS: BP 122/55
[2018-03-22 16:00] VITALS: BP 136/56
[2018-03-22 20:00] VITALS: BP 141/58
[2018-03-23] VITALS: BP 184/82
[2018-03-23 05:24] VITALS: BP 169/74
[2018-03-23 07:23] LABS: BUN 22 mg/dl (7-24); CHLORIDE 102 mmol/L (98-107); CREATININE 0.98 mg/dL (0.70-1.30); POTASSIUM 4.8 mmol/L (3.5-5.1); SODIUM 135 mmol/L (136-145)
[2018-03-23 08:00] VITALS: BP 178/62
[2018-03-23 12:00] VITALS: BP 148/61
[2018-03-23 16:00] VITALS: BP 136/63
[2018-03-24] VITALS: BP 147/82
[2018-03-24 08:00] VITALS: BP 154/66
[2018-03-24 12:00] VITALS: BP 141/58
[2018-03-24 16:00] VITALS: BP 162/70; BP 170/60
[2018-03-24 20:00] VITALS: BP 166/68
[2018-03-25] VITALS: BP 165/70
[2018-03-25 08:00] VITALS: BP 172/60; BP 180/90
[2018-03-25 12:00] VITALS: BP 154/65
[2018-03-25 16:00] VITALS: BP 123/68; BP 155/61
[2018-03-25] MEDS ORDERED: AMLODIPINE BESYL5 MG PO (17:01)
== END 2018-03-25 17:41 | disposition other institution (70) | DRG 683 ==
LOC: ED 19:28 → EDHOLD 21:32 → 4E 21:32
PROVIDERS: Internal Medicine; Student in an Organized Health Care Education/Training Program
DX: N17.9 Acute kidney failure, unspecified (principal); E87.1 Hypo-osmolality and hyponatremia; I95.9 Hypotension, unspecified; E11.42 Type 2 diabetes mellitus with diabetic polyneuropathy; E11.22 Type 2 diabetes mellitus with diabetic chronic kidney disease; E86.0 Dehydration; J43.2 Centrilobular emphysema; H81.10 Benign paroxysmal vertigo, unspecified ear; N18.9 Chronic kidney disease, unspecified; I12.9 Hypertensive chronic kidney disease with stage 1 through stage 4 chronic kidney disease, or unspecified chronic kidney disease; I95.1 Orthostatic hypotension; M47.896 Other spondylosis, lumbar region; Z86.73 Personal history of transient ischemic attack (TIA), and cerebral infarction without residual deficits; Z79.899 Other long term (current) drug therapy

== ENCOUNTER 2018-04-19 16:01 | Inpatient (IN) | payer OTHER ==
[~2018-04-19] VITALS: Ht 177.8 cm; Wt 87.3 kg
--- NOTE | ~2018-04-19 | PR ---
[place], [place] PROGRESS NOTE [id number] UN[facility] #: [id number] ROOM: 428 DOCTOR: GLORIA SUAZO MD BIRTHDATE: [birth year] DOS: SUBJECTIVE: The patient is not having any new complaints. He still has some minimal dizziness. He did work with physical therapy who followed the vestibular rehabilitation here. He seemed to do better. OBJECTIVE: VITAL SIGNS: Graphic trend shows a pressure of 166/80, pulse of 60, respirations 20, temperature 98.0. LUNGS: Diminished breath sounds. No wheezes, rales or rhonchi heard. HEART: Regular. ABDOMEN: Obese. EXTREMITIES: Without any edema. LABORATORY DATA: Echocardiogram shows normal LV function, diastolic dysfunction. ASSESSMENT AND PLAN: 1. Benign positional vertigo with dizziness and difficulty to ambulate. The patient is starting to do vestibular rehabilitation. 2. Adult failure to thrive. Discussed with the patient about the group home placement. I discussed with also case management and PT, they feel that may he be able to go home, so we will do one more day of therapy and if he does okay, we will send him home tomorrow. If not, we will try to get him to a rehab program tomorrow. I did discontinue the gabapentin, which could be causing some of his dizziness. 3. Benign hypertension, on amlodipine. His pressures are starting to go up, we will increase the dose of the medication. GLORIA SUAZO MD CM:PNTRANS [phone] GLORIA SUAZO MD 04/21/18 1032 interface
--- NOTE | ~2018-04-19 | PR ---
[place], [place] PROGRESS NOTE [id number] UN[facility] #: [id number] ROOM: 428 DOCTOR: GLORIA SUAZO MD BIRTHDATE: [birth year] DOS: 04/22/2018 SUBJECTIVE: The patient is doing much better, does not have any new complaints. OBJECTIVE: VITAL SIGNS: Blood pressure is 124/56, pulse of 79, respirations 20, temperature 97.9. LUNGS: Diminished breath sounds. No wheezes, rales or rhonchi heard. HEART: Regular. ABDOMEN: Obese, soft, nontender. EXTREMITIES: Without any edema. ASSESSMENT AND PLAN: 1. Adult failure to thrive with inability to ambulate with severe dizziness and vertigo, seems to be resolving. 2. Small vessel disease of the brain. The patient will go home with physical therapy. 3. Benign hypertension, improved after the amlodipine dosage was increased. GLORIA SUAZO MD CM:PNTRANS [phone] GLORIA SUAZO MD 04/22/181909 interface
--- NOTE | ~2018-04-19 | DS ---
[place], [place] DISCHARGE SUMMARY [id number] #: [id number] ROOM: 428 DOCTOR: GLORIA SUAZO MD BIRTHDATE: [birth year] DOS: 04/22/2018 DIAGNOSES: 1. Adult failure to thrive with inability to ambulate. 2. Benign positional vertigo with chronic. 3. Type 2 diabetes mellitus, diet controlled. 4. Central lobar emphysema. 5. Benign hypertension. 6. Peripheral neuropathy. DISCHARGE MEDICATIONS: Amlodipine 10 daily, Lasix 40 daily, breathing treatments b.i.d., multivitamin 1 tablet daily, iron 100 daily. Gabapentin was discontinued. HOSPITAL COURSE: The patient is 87 years old, comes in with complaints of extreme dizziness, inability to ambulate. He was crawling around in the house. After admission, he was placed on his home medications and gabapentin was discontinued because of possibility of the medicine causing dizziness and vertigo. The patient was placed on increased dose of amlodipine for poorly controlled hypertension. PT/OT and social service was consulted for possible placement. The patient started vestibular rehab with physical therapy here and seems to be improved and PT felt that the patient would go home with therapy, so the plan is to arrange for physical therapy at the local ____ and plan is to discharge him to home today. GLORIA SUAZO MD CM:DISCHARG [id number] GLORIA SUAZO MD 04/22/18 0836 interface
--- NOTE | ~2018-04-19 | WRIGHTHP ---
[place], [place] PATIENT HISTORY AND PHYSICAL EXAM NAME: TOBIAS KING [facility] #: [id number] UNIT #: [id number] ROOM: 428 DOCTOR: GLORIA SUAZO MD BIRTHDATE: [birth year] DOS: 04/19/2018 HISTORY OF PRESENT ILLNESS: The patient is 87 years old. The patient is very well known to us, comes in with complaints of inability to ambulate. The patient has been living at home, but has not been able to walk because of continued dizziness. He scoots around in his house and occasionally uses the walker. Even with a walker, he feels extremely dizzy. He has already had a complete neurological as well as ENT evaluation and his dizziness is multifactorial. He denies having any chest pains, palpitations, shortness of breath. Does not have any fever or chills, does not have any abdominal pain, nausea, any emesis. PAST MEDICAL HISTORY: Significant for: 1. Chronic benign positional vertigo. 2. Benign hypertension. 3. Type 2 diabetes mellitus, controlled on diet. 4. Central lobar emphysema. 5. Adult failure to thrive. MEDICATIONS: He is currently on are albuterol breathing treatments, amlodipine 5 daily, Lasix 40 daily, gabapentin 300 b.i.d., iron 100 mg daily, multivitamin one tablet daily. SOCIAL HISTORY: Nonsmoker, does not use any alcohol. PHYSICAL EXAMINATION: GENERAL: He is awake and alert and oriented, no distress when he is lying down. VITAL SIGNS: Graphic trend shows a pressure of 132/70, pulse of 76, respirations 14, afebrile. LUNGS: Diminished breath sounds, clear. HEART: Regular. ABDOMEN: Obese, soft, nontender. EXTREMITIES: Without any edema. ASSESSMENT AND PLAN: 1. An 87-year-old who presents with severe dizziness and inability to ambulate, admitted with adult failure to thrive. The patient is going to be evaluated by PT, will definitely require vestibular rehab, so he may need a short-term placement for rehabilitation. Social service has been consulted. 2. Benign hypertension, controlled on amlodipine. Check echocardiogram. 3. Small vessel disease of the brain, possibly having TIAs, most likely responsible for some of his symptomatology. MRI of the brain was done recently, so no further MRIs are being ordered. We will discontinue Neurontin which also could cause some dizziness. Lasix will be cut back to 20 mg daily. Discussed with the patient in detail. [place], [place] PATIENT HISTORY AND PHYSICAL EXAM NAME: TOBIAS KING UNIT #: [id number] ROOM: [facility] DOCTOR: GLORIA SUAZO MD BIRTHDATE: [birth year] GLORIA SUAZO MD CM:HISPHYS:PATIENT HISTORY AND PHYSICAL EXAMINATION [phone] GLORIA SUAZO MD 04/20/18 0830 interface
[~2018-04-19 16:01] MED LIST changes: +AMLODIPINE BESYL5 MG PO
[2018-04-19] MEDS ORDERED: Meclizine25 MG PO (16:35)
[2018-04-19 20:00] VITALS: BP 143/80
[2018-04-20] VITALS: BP 122/81
[2018-04-20 08:00] VITALS: BP 188/66
[2018-04-20 08:42] VITALS: BP 148/74
[2018-04-20 08:58] LABS: BASO % 0.4 % (0.0-1.0); EOS # 0.1 10*3/uL (0.0-0.4); EOS % 0.7 % (1.0-4.0); HEMATOCRIT 36.6 % (42.0-52.0); HEMOGLOBIN 11.5 g/dl (14.0-18.0); LYMPH # 2.9 10*3/uL (1.3-4.4); LYMPH % 28.4 % (27.0-41.0); MEAN CELL VOLUME 92.9 fl (80.0-94.0); MEAN CORPUSCULAR HGB 29.2 pg (27.0-31.0); MEAN CORPUSCULAR HGB CONC 31.4 g/dl (33.0-37.0); MEAN PLATELET VOLUME 9.9 fl (9.6-12.3); MONO % 10.1 % (3.0-9.0); NEUT # 5.9 10*3/uL (2.3-7.9); NEUT % 57.6 % (47.0-73.0); PLATELET COUNT AUTOMATED 279 10*3/uL (130-400); RED BLOOD COUNT 3.94 10*6/uL (4.50-5.90); RED CELL DISTRI WIDTH 14.9 % (0-14.5); WHITE BLOOD COUNT 10.2 10*3/uL (4.8-10.8)
[2018-04-20 09:26] LABS: ALBUMIN 3.3 gm/dl (3.1-4.5); ALKALINE PHOSPHATASE 70 U/L (45-117); BUN 26 mg/dl (7-24); CHLORIDE 102 mmol/L (98-107); CREATININE 1.15 mg/dL (0.70-1.30); POTASSIUM 3.7 mmol/L (3.5-5.1); SGOT/AST 7 IU/L (3-35); SGPT/ALT 19 U/L (12-78); SODIUM 138 mmol/L (136-145); TOTAL PROTEIN 6.5 gm/dL (6.4-8.2)
[2018-04-20 12:00] VITALS: BP 166/84
[2018-04-20 16:00] VITALS: BP 125/69
[2018-04-20 20:00] VITALS: BP 147/77
[2018-04-21] VITALS: BP 166/80
[2018-04-21 12:00] VITALS: BP 137/72
[2018-04-21 16:00] VITALS: BP 139/66
[2018-04-21 20:00] VITALS: BP 160/86
[2018-04-22] VITALS: BP 124/56
[2018-04-22] MEDS ORDERED: AMLODIPINE BESYL5 MG PO (07:44)
== END 2018-04-22 12:06 | disposition home or self-care (01) | DRG 149 ==
LOC: 4E 16:01
PROVIDERS: Internal Medicine
DX: H81.10 Benign paroxysmal vertigo, unspecified ear (principal); E11.42 Type 2 diabetes mellitus with diabetic polyneuropathy; E11.9 Type 2 diabetes mellitus without complications; J43.8 Other emphysema; I10 Essential (primary) hypertension; R62.7 Adult failure to thrive; Z79.899 Other long term (current) drug therapy